=== PATIENT | male | born 1955 | race Asian ===

== ENCOUNTER 2024-08-13 17:08 | Emergency (ER) | payer MEDICARE ==
[~2024-08-13] VITALS: Ht 165.1 cm; Wt 63.5 kg
[2024-08-13 17:14] VITALS: BP 121/67; PULSE 84; RESP 18; TEMP 97.6; O2SAT 100
[2024-08-13 18:07] LABS: CHLORIDE 108 mEq/L (98-107); POTASSIUM 4.1 mEq/L (3.5-5.1); SODIUM 140 mEq/L (136-145)
[2024-08-13 18:08] LABS: CARBON DIOXIDE 27 mEq/L (21-32)
[2024-08-13 18:09] LABS: BASOPHILS % 1.2 % (0.0-2.0); CALCIUM 9.2 mg/dL (8.7-10.4); EOSINOPHILS % 3.1 % (0.0-5.0); HEMATOCRIT. 41.3 % (42.0-52.0); HEMOGLOBIN. 13.6 g/dL (14.0-18.0); LYMPHOCYTES % 17.7 % (20.0-50.0); MEAN CORPUSCULAR HEMOGLOBIN 30.1 pg (28.0-32.0); MEAN CORPUSCULAR HGB CONC 32.8 g/dL (31.0-37.0); MEAN CORPUSCULAR VOLUME 91.7 fL (80.0-94.0); MEAN PLATELET VOLUME 7.7 fl (7.4-10.4); MONOCYTES % 10.3 % (2.0-8.0); NEUTROPHILS % 67.7 % (40.0-76.0); PLATELET 415 x1000/uL (130-400); RED CELL DISTRIBUTION WIDTH 15.8 % (11.6-14.6); WHITE BLOOD COUNT 10.4 x1000/uL (4.5-11.0)
[2024-08-13 18:13] LABS: CREATININE 1.6 mg/dL (0.6-1.3); GLUCOSE 95 mg/dL (70-105)
[2024-08-13 18:14] LABS: TROPONIN I HIGH SENSITIVITY 10 ng/L (3.0-53); UREA NITROGEN BLOOD 18 mg/dL (9-23)
[2024-08-13 21:36] LABS: TROPONIN I HIGH SENSITIVITY 10 ng/L (3.0-53)
== END 2024-08-13 22:53 | disposition home or self-care (01) ==
LOC: ER 17:08
DX: R06.02 Shortness of breath (principal); F41.9 Anxiety disorder, unspecified
CPT/HCPCS: 36415; 71045; 80048; 83880; 84484; 85025; 93005; 99284